=== PATIENT | female | born 1955 ===

== ENCOUNTER 2019-02-22 16:07 | Emergency (ER) | payer OTHER ==
[2019-02-22 16:12] VITALS: BMI 26.9
[2019-02-22 16:13] VITALS: RESP 18; TEMP 97.8; O2SAT 99
[2019-02-22 16:16] VITALS: BP 150/95; PULSE 98
--- NOTE | 2019-02-22 16:29 | ED PDOC ---
Upper Extremity Pain/Injury Time Seen by Provider: 02/22/19 16:18 Chief Complaint (Nursing): Upper Extremity Problem/Injury Chief Complaint (Provider): Left arm pain History Per: Patient History/Exam Limitations: no limitations Onset/Duration Of Symptoms: Days (x3) Current Symptoms Are (Timing): Still Present Additional Complaint(s): 63 year old female, with a past medical history of HTN, presents to the ED with 3 days of left shoulder pain radiating down to the hand. Patient denies any injury or fever. She states she woke up with pain in the shoulder 3 days ago. She reports last year around this time, she had the same problem but to the right shoulder. 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 Patient took Tylenol without much improvement with last dose this morning. PMD: none provided Past Medical History Reviewed: Historical Data, Nursing Documentation, Vital Signs Vital Signs: Last Vital Signs Temp 97.8 F 02/22/19 16:15 Pulse 98 H 02/22/19 16:15 Resp 18 02/22/19 16:15 BP 150/95 H 02/22/19 16:15 Pulse Ox 99 02/22/19 16:15 - Medical History PMH: Graves' Disease, HTN, Hyperlipidemia, Hyperthyroidism Denies: Chronic Kidney Disease - Surgical History Surgical History: No Surg Hx - Family History Family History: States: Unknown Family Hx - Immunization History Hx Tetanus Toxoid Vaccination: No Hx Influenza Vaccination: No Hx Pneumococcal Vaccination: No - Home Medications Home Medications: Ambulatory Orders Medication Instructions Recorded Levothyroxine [Synthroid] 125 mcg PO DAILY 08/23/14 Triamterene/Hydrochlorothiazid 1 tab PO DAILY 08/14/17 [Maxzide 50 mg-75 mg] Azithromycin [Zithromax] 250 mg PO DAILY #6 tab 12/06/18 Benzonatate 200 mg PO TID PRN #30 capsule 12/06/18 predniSONE [Prednisone] 20 mg PO BID #10 tab 12/06/18 Famotidine [Pepcid] 40 mg PO DAILY #30 tab 02/22/19 Naproxen 500 mg PO Q12H PRN #30 tab 02/22/19 - Allergies Allergies/Adverse Reactions: Allergies Allergy/AdvReac Type Severity Reaction Status Date / Time No Known Allergies Allergy Unverified 02/22/19 16:15 Review of Systems ROS Statement: Except As Marked, All Systems Reviewed And Found Negative Constitutional: Negative for: Fever Musculoskeletal: Positive for: Arm Pain (Left). Negative for: Other (Injury ) Physical Exam - Reviewed Nursing Documentation Reviewed: Yes Vital Signs Reviewed: Yes - Physical Exam Appears: Positive for: No Acute Distress Head Exam: Positive for: ATRAUMATIC, NORMOCEPHALIC Skin: Positive for: Normal Color, Warm, Dry Eye Exam: Positive for: Normal appearance Neck: Positive for: Normal, Painless ROM Pulses-Radial (L): 2+ Pulses-Radial (R): 2+ Extremity: Positive for: Tenderness (point tenderness to the shoulder between the left clavicle and left humeral head), Capillary Refill (less than 2 seconds), Other (Slight decrease in strength in left arm due to pain; pain in left shoulder when squeezing left hand) Neurological/Psych: Positive for: Awake, Alert, Normal Tone - ECG O2 Sat by Pulse Oximetry: 99 (RA) Pulse Ox Interpretation: Normal Medical Decision Making Medical Decision Making: Initial Impression: Bursitis Initial Plan: --Left shoulder X-ray --Toradol 30mg IM --Reevaluation 16:42 Left shoulder X-ray FINDINGS: BONES: Normal. No fracture. JOINTS: Normal glenohumeral articulation. Mild acromioclavicular degenerative arthritis. SOFT TISSUES: Normal. OTHER FINDINGS: None. IMPRESSION: Mild acromioclavicular degenerative arthritis. Otherwise unremarkable. 17:30 X-ray reviewed and read by radiologist. Findings showed mild arthritis but no fractures. Findings discussed with patient. Patient has better ROM of the left shoulder. Prescription for Naproxen and Pepcid and referral for orthopedic given. Left arm placed in arm splint and instructed of passive ROM of shoulder. Scribe Attestation: Documented by Herb Cline acting as a scribe for Lovely Alfonso NP. Provider Scribe Attestation: All medical record entries made by the Scribe were at my direction and personally dictated by me. I have reviewed the chart and agree that the record accurately reflects my personal performance of the history, physical exam, medical decision making, and the department course for this patient. I have also personally directed, reviewed, and agree with the discharge instructions and disposition. Disposition - Clinical Impression Clinical Impression: Bursitis of left shoulder - Patient ED Disposition Is Patient to be Admitted: No Counseled Patient/Family Regarding: Diagnosis, Need For Followup, Rx Given - Disposition Referrals: Catrachita Perez MD [Staff Provider] - Disposition: Routine/Home Disposition Time: 17:30 Condition: IMPROVED Prescriptions: Famotidine [Pepcid] 40 mg PO DAILY #30 tab Naproxen 500 mg PO Q12H PRN #30 tab PRN Reason: Pain, Moderate (4-7) Instructions: Shoulder Bursitis Print Language: NAMIBIAN - POA Present On Arrival: None
--- NOTE | 2019-02-22 16:46 | RAD ---
Date of service: 02/22/2019 PROCEDURE: Radiographs of the Left Shoulder HISTORY: shoulder pain COMPARISON: No prior. TECHNIQUE: 3 views obtained. FINDINGS: BONES: Normal. No fracture. JOINTS: Normal glenohumeral articulation. Mild acromioclavicular degenerative arthritis. SOFT TISSUES: Normal. OTHER FINDINGS: None. IMPRESSION: Mild acromioclavicular degenerative arthritis. Otherwise unremarkable.
== END 2019-02-22 17:59 | disposition home or self-care (01) ==
LOC: H.ER 16:07
DX: M75.52 Bursitis of left shoulder (principal); I10 Essential (primary) hypertension; E05.00 Thyrotoxicosis with diffuse goiter without thyrotoxic crisis or storm; E78.5 Hyperlipidemia, unspecified
CPT/HCPCS: 73030; 96372; 99284; J1885